=== PATIENT | female | born 1990 | race Caucasian/White ===

== ENCOUNTER 2020-08-18 23:29 | Emergency (ER) | payer OTHER | END 2020-08-19 00:43 | LOC: ED 23:29 | DX: Z02.89 Encounter for other administrative examinations (principal) ==

== ENCOUNTER 2020-08-18 23:29 | Emergency (ER) | payer MEDICAID ==
[~2020-08-18] VITALS: Ht 162.6 cm; Wt 83.9 kg
[2020-08-18 23:30] VITALS: BP 221/140; Ht 162.6 cm; Wt 83.9 kg
== END 2020-08-19 00:43 ==
LOC: ED 23:29
DX: I10 Essential (primary) hypertension (principal); F17.210 Nicotine dependence, cigarettes, uncomplicated; Z02.79 Encounter for issue of other medical certificate